=== PATIENT | female | born 1955 | race Caucasian/White ===

== ENCOUNTER 2019-03-24 06:35 | Day surgery (SDC) | payer BC ==
[~2019-03-24] VITALS: Ht 162.6 cm; Wt 67.1 kg
[~2019-03-24 06:35] MED LIST: ALEVE220 M1 PO; ASPIRIN 8181 MG PO; CRESTOR5 M1 PO; DICLOFENAC0.1 % TOP; DIOVAN160 MG OR; DOXEPIN HCL50 MG PO; FUROSEMIDE20 MG PO; HYDROCODONE/ACE1 TAB PO; LEXAPRO10 MG PO; LOSARTAN POTASS25 MG PO; LOVASTATIN10 M1 PO; LUNESTA2 M2 PO; MELOXICAM7.5 MG PO; METAXALL800 MG; METOPROLOL50 M1 PO; NORCO1 TA2 PO; OSCAL 500/1 TAB PO; PRILOSEC OTC20 MG OR; PRILOSEC20 MG/CAP PO; SIMVASTATIN5 MG PO; ULTRAM50 M1 PO; [UNRECOGNIZED DRUG - OTHER] PO; [UNRECOGNIZED DRUG - OTHER] PO
[2019-03-24 09:23] VITALS: BP 119/74
== END 2019-03-24 09:34 | disposition home or self-care (01) | DRG 951 ==
LOC: ENDO 06:35 → ORM 09:00 → ENDO 09:34
PROVIDERS: ATTEND Surgery
PROC: 0DJD8ZZ Inspection of Lower Intestinal Tract, Via Natural or Artificial Opening Endoscopic (ICD-10-PCS; principal; 2019-03-24)
PROC: 0DB48ZX Excision of Esophagogastric Junction, Via Natural or Artificial Opening Endoscopic, Diagnostic (ICD-10-PCS; 2019-03-24)
DX: Z12.11 Encounter for screening for malignant neoplasm of colon (principal); K57.30 Diverticulosis of large intestine without perforation or abscess without bleeding; K64.8 Other hemorrhoids; K21.0 Gastro-esophageal reflux disease with esophagitis; I10 Essential (primary) hypertension; Z79.899 Other long term (current) drug therapy

== ENCOUNTER 2023-07-03 19:18 | Emergency (ER) | payer MEDICARE, BC ==
[~2023-07-03] VITALS: Ht 162.6 cm; Wt 65.0 kg
[2023-07-03] MEDS ORDERED: LIDOcaine HCl 1% (Local Anesth.) 20 ML VIAL STI STA (19:35)
[2023-07-03] MEDS ORDERED: POVIDONE IODINE 0.5 OZ/BTL TOP ONE (19:35)
[2023-07-03] MEDS ORDERED: SODIUM CHLORIDE 1,000 ML BTL IR ONE (19:35)
[2023-07-03] MEDS ORDERED: Diph, Acellular Pertussis, Tet 0.5 ML/VIAL (Tdap) SDV IM ONE (19:35)
[2023-07-03] MEDS ORDERED: NEOMYCIN-BACITRACIN-POLYMYXIN 0.5 GM/PAK PAK TOP ONE (19:35)
[2023-07-03 19:36] VITALS: BP 175/98
[2023-07-03 20:00] VITALS: BP 163/96
[2023-07-03] MEDS ORDERED: CEPHALEXIN MONOHYDRATE 500 MG/CAP PO ONE (20:10)
[2023-07-03] MEDS ORDERED: KEFLEX500 MG PO (20:12)
[2023-07-03 20:30] VITALS: BP 152/87
[2023-07-03 20:42] VITALS: BP 152/87
== END 2023-07-03 20:49 | disposition home or self-care (01) ==
LOC: ED 19:18
PROC: 0HQFXZZ Repair Right Hand Skin, External Approach (ICD-10-PCS; principal; 2023-07-03)
DX: S61.431A Puncture wound without foreign body of right hand, initial encounter (principal); I10 Essential (primary) hypertension; W20.8XXA Other cause of strike by thrown, projected or falling object, initial encounter

== ENCOUNTER 2024-01-30 11:08 | Emergency (ER) | payer MEDICARE, BC ==
[~2024-01-30] VITALS: Ht 162.6 cm; Wt 65.9 kg
[~2024-01-30 11:08] MED LIST changes: +KEFLEX500 MG PO
[2024-01-30 11:12] VITALS: BP 167/86
[2024-01-30 11:30] VITALS: BP 142/79
[2024-01-30] MEDS ORDERED: MOTRIN800 MG PO (12:01)
[2024-01-30 12:17] VITALS: BP 142/79
== END 2024-01-30 12:17 | disposition home or self-care (01) ==
LOC: ED 11:08
DX: S43.402A Unspecified sprain of left shoulder joint, initial encounter (principal); I10 Essential (primary) hypertension; W01.0XXA Fall on same level from slipping, tripping and stumbling without subsequent striking against object, initial encounter